=== PATIENT | female | born 1975 | race Caucasian/White ===

== ENCOUNTER 2019-07-16 01:24 | Day surgery (SDC) | payer OTHER, SELFPAY ==
[2019-07-12 16:05] VITALS: BMI 50.6
[2019-07-16 11:54] VITALS: BP 163/99; PULSE 88; RESP 18; TEMP 36.4; O2SAT 100
[2019-07-16] MEDS: LACTATED RINGERS 1,000 ML 150 ML IV CONT (12:41)
--- NOTE | 2019-07-16 12:53 | WPDANESEPPF ---
Anes - Initial Pre Proc Eval Procedure: Operation Date: 07/16/19 12:30 Proposed Procedures p Esophagogastroduodenoscopy - Siddhartha Clemens MD Date/Time: 07/16/19 12:53 Surgeon: Siddhartha Clemens MD Pre Op Diagnosis: dysphagia Patient Data Age: 43 Gender: F Height: 5 ft 6 in Weight: 142.3 kg Last Vital Signs Temp 36.4 C 07/16/19 11:54 Pulse 88 07/16/19 11:54 Resp 18 07/16/19 11:54 BP 163/99 H 07/16/19 11:54 Pulse Ox 100 07/16/19 11:54 Allergies Allergy/AdvReac Type Severity Reaction Status Date / Time latex Allergy Mild Rash Verified 07/16/19 11:51 sulfamethoxazole AdvReac Mild Nausea Verified 07/16/19 11:51 Home Medications Medication Instructions Recorded Confirmed Type chlorthalidone 25 mg tablet 25 mg PO DAILY 04/24/19 07/12/19 History duloxetine 60 mg capsule,delayed 120 mg PO DAILY 04/24/19 07/12/19 History release lorazepam 0.5 mg tablet 0.5 mg PO TID PRN 04/24/19 07/12/19 History losartan 100 mg tablet 100 mg PO DAILY 04/24/19 07/12/19 History meloxicam 15 mg tablet 15 mg PO BID 04/24/19 07/12/19 History phentermine 37.5 mg capsule 37.5 mg PO DAILY 04/24/19 07/12/19 History pregabalin 75 mg capsule 75 mg PO BID 04/24/19 07/12/19 History ranitidine HCl 150 mg tablet 150 mg PO BID 04/24/19 07/12/19 History topiramate 25 mg tablet 100 mg PO BID 04/24/19 07/12/19 History trazodone 100 mg tablet 100 mg PO HS 04/24/19 07/12/19 History albuterol sulfate 2 puff INHALATION PRN PRN 07/12/19 07/12/19 History albuterol sulfate [Ventolin HFA] 90 mcg INHALATION BID 07/12/19 07/12/19 History aspirin 81 mg PO DAILY 07/12/19 07/12/19 History beclomethasone dipropionate [Qvar 2 inh INHALATION DAILY 07/12/19 07/12/19 History RediHaler] cholecalciferol (vitamin D3) 25 mcg PO DAILY PRN 07/12/19 07/12/19 History [Vitamin D3] cinnamon bark [Cinnamon] 2,000 mg PO DAILY 07/12/19 07/12/19 History guaifenesin [Mucus Relief ER] 1,200 mg PO BID 07/12/19 07/12/19 History magnesium 250 mg PO DAILY 07/12/19 07/12/19 History db-rd-DM-vit S-ixhqh-poz-coQ10 1 cap PO DAILY 07/12/19 07/12/19 History [Daily Multivitamin] plant stanol genna [Cholest Off 900 mg PO HS 07/12/19 07/12/19 History Plus] potassium chloride 10 meq PO DAILY 07/12/19 07/12/19 History spironolactone 25 mg PO BID 07/12/19 07/12/19 History Patient hx anesthesia problems: none Family hx anesthesia problems: none PMFSH Past Medical History Medical History Bipolar depression Hypertension Morbid obesity with BMI of 50.0-59.9, adult RUQ pain Sciatica Family History Family History Father Colon cancer Hypertension Hyperlipidemia Congestive heart failure (CHF) Skin cancer Mother Hypertension Diabetes mellitus Latent tuberculosis Social History Social History Smoking status: Never smoker Alcohol intake: never Anes - Eval Final PreProcedure Day of Procedure 07/16/19 12:53 Patient weight: morbidly obese Heart: regular rate and rhythm Lungs: clear to auscultation Airway: Mallampati scale class II Neurological: alert and oriented Last oral intake: >/= 8 hours ASA classification: III Emergent: no Anesthetic plan: proceed Anesthesia type and monitoring: general and standard monitoring Informed Consent: The patient's anesthetic plan and its attendant risks and benefits were discussed with the patient/family/POA. Questions were solicited and answers provided to the satisfaction of the patient/family/POA.
--- NOTE | 2019-07-16 13:18 | WPDHPUPDATE1 ---
History and Physical Update Update Date/Time: 07/16/19 13:18 History and Physical has been reviewed, including an updated exam of the patient. There are NO changes in the patient's condition. Risks, benefits, and alternatives have been discussed and questions answered. Patient agrees to proceed with procedure.
[2019-07-16 13:40] VITALS: BP 122/93; PULSE 83; RESP 16; O2SAT 98
[2019-07-16 13:50] VITALS: BP 122/72; PULSE 96; RESP 18; O2SAT 98
[2019-07-16 14:00] VITALS: BP 141/71; PULSE 78; RESP 20; O2SAT 98
== END 2019-07-16 14:12 | disposition home or self-care (01) ==
PROVIDERS: PCP Family Medicine; Visit Provider Internal Medicine Gastroenterology
PROC: 0DJ08ZZ Inspection of Upper Intestinal Tract, Via Natural or Artificial Opening Endoscopic (ICD-10-PCS; CPT 43235; principal; 2019-07-16 12:30)
DX: K21.0 Gastro-esophageal reflux disease with esophagitis (principal); K29.50 Unspecified chronic gastritis without bleeding; I10 Essential (primary) hypertension; F31.9 Bipolar disorder, unspecified; Z79.82 Long term (current) use of aspirin; E66.01 Morbid (severe) obesity due to excess calories; Z68.43 Body mass index [BMI] 50.0-59.9, adult
CPT/HCPCS: 43239; 88305; J2704; J7120

== ENCOUNTER 2019-07-19 10:54 | Outpatient (CLI) | payer OTHER, SELFPAY ==
--- NOTE | ~2019-07-19 | CT_ITS ---
EXAMINATION: CTA abd aorta runoff DATE: 07/19/2019 12:08 INDICATION: Peripheral vascular disease, edema TECHNIQUE: Computed tomographic angiography (CTA) of the abdomen, pelvis, and both lower extremities was performed with 150 mL Omnipaque-350 intravenous contrast. The dose-length product (DLP) was 1807. 63 mGy-cm. Maximum intensity projection 3D-reconstructions of the arteries were created by the [employer] [facility] on a separate workstation. Automated exposure control and iterative reconstruction technique w ere employed. COMPARISON: MRI, 10/01/2017. FINDINGS: ABDOMINAL AORTA AND ITS BRANCHES: Mild calcified atherosclerosis without hemodynamically significant stenosis. Single renal arteries ar e present bilaterally. The superior mesenteric artery, celiac axis, and inferior mesenteric artery ar e unremarkable. PELVIC VASCULATURE: Minimal calcified atherosclerosis without hemodynamically significant stenosis. RIGHT LOWER EXTREMITY VASCULATURE: No hemodynamically significant stenosis. There is a three-vessel runoff at the ankle. LEFT LOWER EXTREMITY VASCULATURE: No hemodynamically significant stenosis. There is a three-vessel runoff at the ankle. ADDITIONAL FINDINGS: The lung bases are clear. The heart size is normal. The liver, spleen, pancreas, and gallbladder are normal. There is a 1.3 cm adenoma of the left adrenal gland. The right adrenal gland is normal. Cysts of the right kidney measure up to 2.1 cm. The left kidney is unremarkable. No pathologically enlarge d abdominal or pelvic lymph nodes are identified. There is no free intraperitoneal gas or evidence of bowel obstruction. There is mild to moderate osteoarthritis of the knees and left foot. Moderate spo ndylosis is present at L4-5. IMPRESSION: 1. Areas of minimal atherosclerosis without hemodynamically significant arterial stenosis. Reviewed, dictated and finalized at location [facility]. [facility] IMPRESSION: 1. Areas of minimal atherosclerosis without hemodynamically significant arteria l stenosis.
[2019-07-19 11:53] LABS: Blood Urea Nitrogen 7 mg/dL (8-26); Estimated Glomerular Filt Rate > 60
== END 2019-07-19 10:55 | disposition home or self-care (01) ==
DX: I70.213 Atherosclerosis of native arteries of extremities with intermittent claudication, bilateral legs (principal); R60.9 Edema, unspecified
CPT/HCPCS: 75635; Q9967

== ENCOUNTER 2020-07-30 12:10 | Outpatient (CLI) | payer OTHER, SELFPAY ==
--- NOTE | ~2020-07-30 | XR_ITS ---
EXAMINATION: XR lg joint inject/asp w image DATE: 07/30/2020 13:22 INDICATION: Right hip osteoarthritis. TECHNIQUE: A time-out was performed to verify the patient's name, date of , and procedure to b e performed. The procedure including the risks, benefits, and alternatives was discussed with the pat ient. Risks discussed included bleeding and infection. The patient understood the risks and agreed to proceed. The skin overlying the right joint was prepped and draped in usual sterile fashion. Anest hetic was administered with 1% lidocaine subcutaneously. A 22 G needle was advanced under fluoroscop ic guidance into the joint. Injection of 1 mL of Omnipaque 240 confirmed intra-articular position of the needle. Subsequently, injectate consisting of 3 mL 1% lidocaine and 2 mL 10 mg/mL Kenalog was i nstilled. The needle was removed and the entry site was cleaned and dressed. There were no immediat e complications. Fluoroscopy exposure time was 0.0 minutes. The total number of images was 2. FINDINGS: Real-time fluoroscopy demonstrates the needle in the right hip joint. Patient's pain prior to procedure:11/28. Patient's pain following the procedure: 01/29. IMPRESSION: 1. Fluoroscopy guided right hip joint injection of local anesthetic and steroid . Reviewed, dictated and finalized at location [facility]. [facility]
== END 2020-07-30 12:11 | disposition home or self-care (01) ==
PROVIDERS: PCP Internal Medicine; Visit Provider Orthopaedic Surgery
DX: M16.11 Unilateral primary osteoarthritis, right hip (principal)
CPT/HCPCS: 20610; 77002; J3301; Q9966